=== PATIENT | male | born 1985 | race Caucasian/White ===

== ENCOUNTER 2020-04-19 21:29 | Emergency (ER) | payer OTHER ==
--- OUTSIDE RECORDS SUMMARY | 2020-04-19 21:31 | XMS REPORT | Continuity of Care Document ---
:1985 Author Organization [facility] t Address [address] [place] [address] Care Team Providers Name Role Phone Cuong GAY Attending Clinician Unavailable Pob1, [facility] Attending Clinician Unavailable Stephane RN, P Attending Clinician Unavailable Problems This patient has no known problems. Allergies, Adverse Reactions, Alerts This patient has no known allergies or adverse reactions. Medications This patient has no known medications. Procedures This patient has no known procedures. Encounters Start End Encounter Admission Attending Care Care Encounter Source Date/Time Date/Time Type Type Clinicians Facility Department ID 2019-09-04 2019-09-04 Telephone URIEL Hutchins [id number] 00:00:00 00:00:00 Francy ALAN [id number] [id number] 2019-09-03 2019-09-03 Urgent Pob1, Acute [facility] [id number] 14:54:00 15:55:28 [facility] [id number] [place] [id number] [place] [phone] [address]al [address] 2019-08-17 2019-08-17 Telephone URIEL Calderón [id number] 00:00:00 00:00:00 Anna ALAN [id number] 2019-08-15 2019-08-16 Urgent Pob1, Acute [facility] [id number] 17:27:53 15:04:11 [facility] [id number] [place] [id number] [place] [phone] nal [address] Results This patient has no known results.
--- NOTE | 2020-04-19 21:42 | EDPHYS ---
Physician Documentation [facility] Name: Balwinder Brown Age: 35 yrs Sex: Male : 1985 Arrival Date: 04/19/2020 Time: 21:33 Bed 15 Private MD: ED Physician Chente Denson HPI: 04/19 21:47 This 35 yrs old Male presents to ER via Unassigned with complaints of kb Infection to Arm. 21:47 The patient presents with cellulitis of the left arm. Description: erythematous, hot, kb swollen. Onset: The symptoms/episode began/occurred 1 week(s) ago. Possible cause(s): tattoo. Associated signs and symptoms: Pertinent positives: erythema, swelling, Pertinent negatives: discharge, drainage, foreign body sensation, fever, headache, nausea, shortness of breath, vomiting. Modifying factors: the symptoms are alleviated by nothing, the symptoms are aggravated by pressure, touching. Severity of symptoms: At their worst the symptoms were severe, in the emergency department the symptoms have improved, markedly. The patient has not experienced similar symptoms in the past. The patient has not recently seen a physician. Pt reports his arm started getting red and swollen after getting a tattoo. States he was put on keflex on Monday and told that he needed to come to the ER if it wasn't completely better by this weekend. Pt reports it is much better, but still there so he came in. States redness, swelling and warmth have resolved. Had a fever the first 48 hours, but that resolved. Historical: - Allergies: 21:49 No Known Allergies; ca1 - Home Meds: 21:49 cephalexin Oral [Active]; ca1 - PMHx: 21:49 None; ca1 - PSHx: 21:49 None; ca1 - Immunization history:: Adult Immunizations up to date, Flu vaccine is not up to date. - Social history:: Smoking status: Patient denies any tobacco usage or history of. ROS: 21:44 Constitutional: Negative for fever, chills, and weight loss, Cardiovascular: Negative kb for chest pain, palpitations, and edema, Respiratory: Negative for shortness of breath, cough, wheezing, and pleuritic chest pain, Abdomen/GI: Negative for abdominal pain, nausea, vomiting, diarrhea, and constipation, MS/Extremity: Negative for injury and deformity, Neuro: Negative for headache, weakness, numbness, tingling, and seizure. 21:44 Skin: Positive for cellulitis, of the left arm. Exam: 21:46 Constitutional: This is a well developed, well nourished patient who is awake, alert, kb and in no acute distress. Head/Face: Normocephalic, atraumatic. Chest/axilla: Normal chest wall appearance and motion. Nontender with no deformity. No lesions are appreciated. Cardiovascular: Regular rate and rhythm with a normal S1 and S2. No gallops, murmurs, or rubs. Normal PMI, no JVD. No pulse deficits. Respiratory: Lungs have equal breath sounds bilaterally, clear to auscultation and percussion. No rales, rhonchi or wheezes noted. No increased work of breathing, no retractions or nasal flaring. Abdomen/GI: Soft, non-tender, with normal bowel sounds. No distension or tympany. No guarding or rebound. No evidence of tenderness throughout. MS/ Extremity: Pulses equal, no cyanosis. Neurovascular intact. Full, normal range of motion. Neuro: Awake and alert, GCS 15, oriented to person, place, time, and situation. Cranial nerves II-XII grossly intact. Motor strength 5/5 in all extremities. Sensory grossly intact. Cerebellar exam normal. Normal gait. 21:46 Skin: cellulitis, that is mild, that is moderate, on the left arm. Vital Signs: 21:40 BP 139 / 82; Pulse 92; Resp 18 S; Temp 98.2(O); Pulse Ox 100% on R/A; Weight 88 kg (R); ca1 Height 6 ft. 2 in. (187.96 cm) (R); Pain 0/10; 21:40 Body Mass Index 24.91 (88.00 kg, 187.96 cm) ca1 MDM: 21:35 Patient medically screened. kb 21:44 Data reviewed: vital signs, nurses notes. Data interpreted: Pulse oximetry: on room air kb is 100 %. Interpretation: normal. Counseling: I had a detailed discussion with the patient and/or guardian regarding: the historical points, exam findings, and any diagnostic results supporting the discharge/admit diagnosis, the need for outpatient follow up, a family practitioner, to return to the emergency department if symptoms worsen or persist or if there are any questions or concerns that arise at home. Administered Medications: 21:46 Drug: Bactrim (160 mg-800 mg (DS) 1 tablet Route: PO; ca1 21:56 Follow up: Response: No adverse reaction ca1 Disposition: 04/19/20 21:41 Discharged to Home. Impression: Cellulitis of left upper limb. - Condition is Stable. - Discharge Instructions: Cellulitis, Adult, [id number]. - Prescriptions for Bactrim DS 800- 160 mg Oral Tablet - take 1 tablet by ORAL route every 12 hours for 10 days; 20 tablet. - Medication Reconciliation Form, Thank You Letter, Antibiotic Education, Prescription Opioid Use form. - Follow up: Emergency Department; When: As needed; Reason: Worsening of condition. Follow up: Private Physician; When: 2 - 3 days; Reason: Recheck today's complaints, Continuance of care, Re-evaluation by your physician. Addendum: 04/21/2020 03:35 Co-signature as Attending Physician, Chente Denson MD. m a2 Signatures: Mireya Renner, NATY-C NATY-CkChente Saunders MD MD ma2 Elise Long RN RN ca1 Corrections: (The following items were deleted from the chart) 04/19 21:56 21:41 04/19/2020 21:41 Discharged to Home. Impression: Cellulitis of left upper limb. ca1 Condition is Stable. Forms are Medication Reconciliation Form, Thank You Letter, Antibiotic Education, Prescription Opioid Use. Follow up: Emergency Department; When: As needed; Reason: Worsening of condition. Follow up: Private Physician; When: 2 - 3 days; Reason: Recheck today's complaints, Continuance of care, Re-evaluation by your physician. kb
--- NOTE | 2020-04-19 21:57 | ER ---
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 Stared ABX Cephalexin on Monday prescribed by PCP. Swelling has subsided a bit but is still there as well as redness. Denies fever at this time. Coronavirus screen: Client denies travel out of the [place] in the last 14 days. At this time, the client does not indicate any symptoms associated with coronavirus-19. Ebola Screen: Patient negative for fever greater than or equal to 101.5 degrees Fahrenheit, and additional compatible Ebola Virus Disease symptoms Patient denies exposure to infectious person. Patient denies travel to an Ebola-affected area in the 21 days before illness onset. No symptoms or risks identified at this time. Initial Sepsis Screen: Does the patient meet any 2 criteria? No. Patient's initial sepsis screen is negative. Does the patient have a suspected source of infection? No. Patient's initial sepsis screen is negative. Risk Assessment: Do you want to hurt yourself or someone else? Patient reports no desire to harm self or others. Onset of symptoms was April 19, 2020. 21:40 Method Of Arrival: Ambulatory ca1 21:40 Acuity: YENNI 5 ca1 Triage Assessment: 21:49 General: Appears in no apparent distress. comfortable, Behavior is calm, cooperative, ca1 appropriate for age. Pain: Complains of pain in left arm Pain currently is 0 out of 10 on a pain scale. Neuro: Level of Consciousness is awake, alert, obeys commands, Oriented to person, place, time, situation. Derm: Skin is intact, is healthy with good turgor, Skin is pink, warm \T\ dry. Musculoskeletal: Circulation, motion, and sensation intact. Capillary refill < 3 seconds, Swelling present in left elbow. Historical: - Allergies: 21:49 No Known Allergies; ca1 - Home Meds: 21:49 cephalexin Oral [Active]; ca1 - PMHx: 21:49 None; ca1 - PSHx: 21:49 None; ca1 - Immunization history:: Adult Immunizations up to date, Flu vaccine is not up to date. - Social history:: Smoking status: Patient denies any tobacco usage or history of. Screenin:42 Abuse screen: Denies threats or abuse. Denies injuries from another. Nutritional ca1 screening: No deficits noted. Tuberculosis screening: No symptoms or risk factors identified. Fall Risk None identified. Assessment: 21:42 Reassessment: see triage notes. ca1 Vital Signs: 21:40 BP 139 / 82; Pulse 92; Resp 18 S; Temp 98.2(O); Pulse Ox 100% on R/A; Weight 88 kg (R); ca1 Height 6 ft. 2 in. (187.96 cm) (R); Pain 0/10; 21:40 Body Mass Index 24.91 (88.00 kg, 187.96 cm) ca1 ED Course: 21:33 Patient arrived in ED. bp1 21:34 Mireya Renner F[facility]-C [facility]. kb 21:34 Chente Denson MD is Attending Physician. kb 21:42 Patient has correct armband on for positive identification. Bed in low position. Call ca1 light in reach. Side rails up X 1. Pulse ox on. NIBP on. 21:43 Elise Long RN is Primary Nurse. ca1 21:49 Triage completed. ca1 21:49 Arm band placed on right wrist. ca1 21:51 No provider procedures requiring assistance completed. Patient did not have IV access ca1 during this emergency room visit. Administered Medications: 21:46 Drug: Bactrim (160 mg-800 mg (DS) 1 tablet Route: PO; ca1 21:56 Follow up: Response: No adverse reaction ca1 Outcome: 21:41 Discharge ordered by . kb 21:56 Discharged to home ambulatory. ca1 21:56 Condition: stable 21:56 Discharge instructions given to patient, Instructed on discharge instructions, follow up and referral plans. medication usage, Demonstrated understanding of instructions, follow-up care, medications, Prescriptions given X 1. 21:56 Patient left the ED. ca1 Signatures: Mireya Renner FNP-C [employer]-Ckb Elise Long RN RN ca1 Randa Barreto bp1
[2020-04-19] MEDS ORDERED: SMZ./TMP. 800/160 MG TABLET ONE (21:59)
[2020-04-20 03:36] VITALS: BP 139/82; TEMP 98.2; O2SAT 100
== END 2020-04-19 21:56 | disposition home or self-care (01) ==
LOC: ER 21:29
DX: L03.114 Cellulitis of left upper limb (principal)
CPT/HCPCS: 99283

== ENCOUNTER 2020-04-29 | Emergency (ER) | payer OTHER ==
--- NOTE | 2020-04-29 21:21 | EDPHYS ---
Physician Documentation [facility] Name: Balwinder Brown Age: 35 yrs Sex: Male : 1985 Arrival Date: 04/29/2020 Time: 19:52 Bed Waiting Private MD: ED Physician Lenny Canas HPI: 04/29 20:52 This 35 yrs old Male presents to ER via Ambulatory with complaints of Arm jmm Pain. 20:52 The patient or guardian complains of swelling. Onset: The symptoms/episode jmm began/occurred gradually, 1 week(s) ago. Treatment prior to arrival includes: bactrim. Modifying factors: The symptoms are alleviated by nothing. the symptoms are aggravated by movement. This is a 35 year old male with no chronic medical conditions that presents to the ED with complaints of left elbow pain and swelling. Patient states he was treated for cellulitis with Bactrim secondary to tattoo. Denies fever currently. . Historical: - Allergies: 20:41 No Known Allergies; iw - Home Meds: 20:41 Bactrim DS Oral [Active]; iw - PMHx: 20:41 None; iw - PSHx: 20:41 None; iw - Immunization history:: Adult Immunizations. - Social history:: Smoking status: Patient denies any tobacco usage or history of. ROS: 20:52 Constitutional: Negative for fever, chills, and weight loss, Cardiovascular: Negative jmm for chest pain, palpitations, and edema, Respiratory: Negative for shortness of breath, cough, wheezing, and pleuritic chest pain. 20:52 MS/extremity: Positive for pain, swelling. 20:52 All other systems are negative. Exam: 20:52 Constitutional: This is a well developed, well nourished patient who is awake, alert, jmm and in no acute distress. Head/Face: atraumatic. Eyes: EOMI, no conjunctival erythema appreciated ENT: Moist Mucus Membranes Neck: Trachea midline, Supple Chest/axilla: Normal chest wall appearance and motion. Cardiovascular: Regular rate and rhythm. No edema appreciated Respiratory: Normal respirations, no respiratory distress appreciated Abdomen/GI: Non distended, soft Back: Normal ROM Skin: General appearance color normal 20:52 Musculoskeletal/extremity: swelling noted to the left elbow at the level of the olecranon, FROM appreciated, full hand crocheter strength, NVI. 20:52 Skin: Appearance: Color: normal in color. 20:52 Neuro: Orientation: is normal, Mentation: is normal, Memory: is normal. 20:52 Psych: Behavior/mood is pleasant, cooperative. Vital Signs: 20:41 BP 121 / 79; Pulse 64; Resp 16; Temp 98.1; Pulse Ox 100% on R/A; Weight 88 kg; Height 6 iw ft. 2 in. (187.96 cm); Pain 0/10; 20:41 Body Mass Index 24.91 (88.00 kg, 187.96 cm) iw MDM: 20:50 Patient medically screened. [facility] 20:54 Data reviewed: vital signs, nurses notes. Counseling: I had a detailed discussion with tera the patient and/or guardian regarding: the historical points, exam findings, and any diagnostic results supporting the discharge/admit diagnosis, the need for outpatient follow up, to return to the emergency department if symptoms worsen or persist or if there are any questions or concerns that arise at home. ED course: Patient is alert and non toxic in appearance in the ED. Patient is advised to follow up with ortho for reevaluation. Patient is otherwise given strict return precautions. PE exam consistent with olecranon bursitis. . Administered Medications: No medications were administered Disposition: 04/30 01:48 Co-signature as Attending Physician, Lenny Canas MD. rn Disposition: 04/29/20 20:55 Discharged to Home. Impression: Olecranon bursitis, left elbow. - Condition is Stable. - Discharge Instructions: Elbow Bursitis. - Prescriptions for Ibuprofen 800 mg Oral Tablet - take 1 tablet by ORAL route every 8 hours As needed take with food; 30 tablet. - Medication Reconciliation Form, Thank You Letter, Antibiotic Education, Prescription Opioid Use form. - Follow up: Shaheen Skinner MD; When: 2 - 3 days; Reason: Recheck today's complaints, Continuance of care, Re-evaluation by your physician. Signatures: Anil Hoffmann PA PA Adwoa Long RN RN iw Lneny Canas MD MD commercial real estate attorney: (The following items were deleted from the chart) 04/29 21:11 20:55 04/29/2020 20:55 Discharged to Home. Impression: Olecranon bursitis, left elbow. iw Condition is Stable. Forms are Medication Reconciliation Form, Thank You Letter, Antibiotic Education, Prescription Opioid Use. Follow up: Dr. Shaheen Skinner; When: 2 - 3 days; Reason: Recheck today's complaints, Continuance of care, Re-evaluation by your physician. cyndi
--- NOTE | 2020-04-29 21:21 | ER ---
Nurse's Notes [facility] Name: Balwinder Brown Age: 35 yrs Sex: Male : 1985 Arrival Date: 04/29/2020 Time: 19:52 Bed Waiting Private MD: Diagnosis: Olecranon bursitis, left elbow Presentation: 04/29 20:41 Coronavirus screen: At this time, the client does not indicate any symptoms associated iw with coronavirus-19. Ebola Screen: Patient negative for fever greater than or equal to 101.5 degrees Fahrenheit, and additional compatible Ebola Virus Disease symptoms Patient denies exposure to infectious person. Patient denies travel to an Ebola-affected area in the 21 days before illness onset. No symptoms or risks identified at this time. Initial Sepsis Screen: Does the patient meet any 2 criteria? Yes No. Patient's initial sepsis screen is negative. Does the patient have a suspected source of infection? No. Patient's initial sepsis screen is negative. Risk Assessment: Do you want to hurt yourself or someone else? Patient reports no desire to harm self or others. 20:41 Method Of Arrival: Ambulatory iw 20:41 Acuity: YENNI 4 iw 20:42 Chief complaint: Patient states: was diagnosed with cellulitis to left arm was on iw cephalexin then prescribed bactrim, still has a knot on left elbow that is tender. Onset of symptoms was April 21, 2020. Historical: - Allergies: 20:41 No Known Allergies; iw - Home Meds: 20:41 Bactrim DS Oral [Active]; iw - PMHx: 20:41 None; iw - PSHx: 20:41 None; iw - Immunization history:: Adult Immunizations. - Social history:: Smoking status: Patient denies any tobacco usage or history of. Screenin:46 Abuse screen: Denies threats or abuse. Denies injuries from another. Nutritional iw screening: No deficits noted. Tuberculosis screening: No symptoms or risk factors identified. Fall Risk None identified. Assessment: 20:46 General: Appears in no apparent distress. Behavior is calm, cooperative. Pain: iw Complains of pain in left elbow Pain currently is 7 out of 10 on a pain scale. Neuro: Level of Consciousness is awake, alert, obeys commands, Oriented to person, place, time, situation, Moves all extremities. Full function. Cardiovascular: Patient's skin is warm and dry. Respiratory: Respiratory effort is even, unlabored, Respiratory pattern is regular, symmetrical. Derm: Skin is intact, is healthy with good turgor. Musculoskeletal: Range of motion: intact in all extremities, Swelling present in left elbow. Vital Signs: 20:41 BP 121 / 79; Pulse 64; Resp 16; Temp 98.1; Pulse Ox 100% on R/A; Weight 88 kg; Height 6 iw ft. 2 in. (187.96 cm); Pain 0/10; 20:41 Body Mass Index 24.91 (88.00 kg, 187.96 cm) iw ED Course: 19:52 Patient arrived in ED. cl3 20:06 Anil Hoffmann PA is PHCP. cyndi 20:06 Lenny Canas MD is Attending Physician. [facility] 20:42 Triage completed. iw 20:42 Arm band placed on. iw 20:46 Adwoa Potter, RN is Primary Nurse. iw 20:46 Patient has correct armband on for positive identification. iw 20:47 No provider procedures requiring assistance completed. Patient did not have IV access iw during this emergency room visit. 20:55 Shaheen Skinner MD is Referral Physician. [facility] Administered Medications: No medications were administered Outcome: 20:55 Discharge ordered by . [facility] 21:10 Discharged to home ambulatory. iw 21:10 Condition: good 21:10 Discharge instructions given to patient, Instructed on discharge instructions, follow up and referral plans. Demonstrated understanding of instructions, follow-up care, medications, Prescriptions given X 1. 21:11 Patient left the ED. iw Signatures: Anil Hoffmann PA PA jmm Williams, Irene, RN RN Gardenia Goldberg cl3
--- OUTSIDE RECORDS SUMMARY | 2020-04-29 21:56 | XMS REPORT | Continuity of Care Document ---
:[address] [facility] t Address [address] [place] [place] [address] Care Team Providers Name Role Phone Cuong GAY Attending Clinician Unavailable Pob1, [facility] Attending Clinician Unavailable Stephane RN, P Attending [...] Department ID 2019-09-04 2019-09-04 Telephone URIEL Hutchins [id number] 00:00:00 00:00:00 Francy ALAN [id number] [place] [id number] 2019-09-03 2019-09-03 Urgent Pob1, Acute [facility] [id number] 14:54:00 15:55:28 [facility] [id number] [place] [id number] [facility] [phone] [address] 2019-08-17 2019-08-17 Telephone URIEL Calderón [id number] 00:00:00 00:00:00 Anna ALAN [id number] 2019-08-15 2019-08-16 Urgent Pob1, Acute [facility] [id number] 17:27:53 15:04:11 [facility] [id number] [place] [id number] Shirin [phone] [facility] [address] Results This patient has no known results.
== END 2020-04-29 21:11 | disposition home or self-care (01) ==
DX: M70.22 Olecranon bursitis, left elbow (principal)
CPT/HCPCS: 99282